=== PATIENT | female | born 1950 | race African-American/Black ===

== ENCOUNTER 2017-03-28 19:14 | Inpatient (IN) | payer BC ==
[~2017-03-28] VITALS: Ht 167.6 cm; Wt 72.3 kg
--- NOTE | ~2017-03-28 | DS ---
Unit #: [id number] #: [id number] Patient: ZELDA PIERRE [id number] [address] [address] [id number] I MR#: [id number] NAME: ZELDA PIERRE ROOM: 558 Age: 66 Sex: F Admission Date: 03/29/2017 : 1950 Discharge Date: 03/31/2017 Attending Physician: Mona Florentino M.D. Primary Care Physician: No Primary Care Physician DISCHARGE SUMMARY PRINCIPAL DIAGNOSES 1. Congestive heart failure secondary to number 2 and number 3. 2. Severe mitral regurgitation. 3. Severe mitral stenosis. 4. Moderate pulmonary hypertension. 5. Hypertension, controlled. 6. Transaminitis secondary to hepatic congestion, now resolved. 7. Acute hypoxic respiratory failure secondary to number 1, now resolved. 8. Hyperlipidemia. 9. Depression. CONSULTANTS Dr. Garcia, cardiology. PROCEDURES Left-side heart catheterization on March 31, 2017. Ejection fraction of 45 to 50%. Severe mitral regurgitation noted. No evidence of aortic stenosis or aortic regurgitation. DIAGNOSTIC STUDIES CARDIOVASCULAR: Two-dimensional echocardiogram on March 29, 2017 with a mildly enlarged right atrium. Elevated right ventricular systolic pressure of 51 mmHg, consistent with moderate pulmonary hypertension. Ejection fraction 55%. Severe mitral regurgitation noted. Moderate mitral stenosis noted. Mitral valve area 2.54 cm squared. Large left pleural effusion noted. IMAGING: Chest x-ray on March 28, 2017 with complete loss of both hemidiaphragms and pulmonary congestion. CT angiogram of the chest on March 28, 2017 with moderate bilateral pleural effusions, right greater than left and a moderate amount of right middle lobe and lingular atelectasis. Interstitial edema also noted. Negative for PE. Chest x-ray on March 30, 2017 with bilateral pleural effusions. CLINICAL HISTORY AND HOSPITAL COURSE Ms. Pierre is a really nice 66-year-old female female who presents to emergency department with increasing shortness of breath. Please refer to H and P for further details. In the emergency department patient was found to have an elevated BNP of 600, and chest x-ray was consistent with pulmonary edema. Patient was subsequently admitted. Unit #: [id number] #: [id number] Patient: ZELDA PIERRE Patient was placed on IV diuretics, and cardiology was consulted. Patient was found to have very loud mitral regurgitation murmur upon examination, and two-D echo was done with findings as noted. Patient's pulmonary edema was secondary to significant mitral regurgitation. Patient underwent heart cath to rule out underlying coronary artery disease, but this was negative. Plan is for symptomatic treatment at this time with IV diuretics, and patient will follow up with Dr. Garcia as an outpatient with plans for outpatient evaluation for mitral valve replacement. Patient's other chronic conditions remained stable with the exception of her blood pressure. Medications have been adjusted, and blood pressure is now well controlled. Thus, she will be discharged home later today. DISCHARGE CONDITION Stable. DISCHARGE STATUS Discharge to home. DISCHARGE MEDICATIONS 1. Zoloft 50 mg daily. 2. Metoprolol tartrate 50 mg p.o. b.i.d. 3. Lasix 40 mg daily. 4. Pravastatin 80 mg at bedtime. 5. Lisinopril 20 mg b.i.d. 6. Aspirin 81 mg daily. 7. Spironolactone 25 mg daily. 8. Klor-Con 20 mEq p.o. daily. DISCHARGE INSTRUCTIONS Patient was instructed to follow a heart healthy diet. She can increase her activity as tolerated. FOLLOW-UP Patient has followup appointment with Dr. Garcia on April 10, 2017 at 3 p.m. She has been instructed to see a dentist in the interim for improved dental hygiene prior to anticipated valve replacement. Dictated by... Mona Florentino M.D. SAM/tomasa TD: 04/03/2017 15:15 JOB #: [id number] Unit #: [id number] #: [id number] Patient: ZELDA PIERRE DISCHARGE SUMMARY Page 1 of 1 X Mona Florentino MD DISCHARGE SUMMARY
--- NOTE | ~2017-03-28 | CT16 ---
[facility] A Service of [facility] & [facility] RADIOLOGY TEXT RESULTS PATIENT: ZELDA NGUYEN LOCATION: [facility] 558-01 : [birth year] UNIT #: [id number] AGE: [address]: Mona Florentino MD SEX: F ORDER DR: [id number] [facility] [address] [place], [place] [address] [id number] I MR#: [id number] Acc #: [id number] NAME: ZELDA NGUYEN : 1950 SEX: F STUDY DATE/TIME: 03/28/2017 21:37 UNIT: CEDOF ROOM: 95598 STUDY DESCRIPTION: CT Angio Chest for PE Attending Physician: Jodi Gramajo M.D. Ordering Physician: Cash Harley D.O. Primary Care Physician: Primary Care Physician No MEDICAL IMAGING REPORT This report is preliminary unless electronic signature is present EXAM CT chest PE protocol. HISTORY Shortness of air. Heart racing since this morning. Elevated D-dimer. COMPARISON Portable chest 03/28/[address] exam was performed with one or more of the following radiation dose reduction techniques: automatic exposure control, adjustment of mA and/or kV according to patient size, and iterative reconstruction. FINDINGS Axial images performed through the chest following IV contrast. 3-D coronal and sagittal reconstructed images reviewed at a workstation. Examination demonstrates moderate bilateral pleural effusions layering to a depth of close to 6 cm on the right and over 4.5 cm on the left. There is compressive atelectasis in both lung bases. There is a moderate amount of lingular and right middle lobe atelectasis. Mild interstitial prominence but no definite interstitial edema. No focal alveolitis. Trachea and bronchi unremarkable. No evidence of pulmonary embolus. Mild cardiomegaly. Aorta unremarkable. The upper abdomen unremarkable. Osseous structures and thoracic inlet appear normal. IMPRESSION 1. Moderate bilateral pleural effusions right greater than left with bibasilar atelectasis as well as a moderate amount of right middle lobe and lingular atelectasis. Mild interstitial prominence but no definitive interstitial edema or focal alveolitis. 2. No evidence of pulmonary embolus. ST[facility] A Service of [facility] & [facility] RADIOLOGY TEXT RESULTS PATIENT: ZELDA NGUYEN LOCATION: [facility] 558-01 : [birth year] UNIT #: [id number] AGE: [address]: Mona Florentino MD SEX: F ORDER DR: Dictated by... Anayeli Segura M.D. THIS IS AN ELECTRONICALLY VERIFIED REPORT Anayeli Segura M.D. at 03/29/2017 2:22 PM Olga TD: 03/29/2017 01:38 JOB #: [id number] MEDICAL IMAGING REPORT Page 1 of 1 COPY
--- NOTE | ~2017-03-28 | CR72 ---
[facility] A Service of [facility] & [facility] RADIOLOGY TEXT RESULTS PATIENT: ZELDA NGUYEN LOCATION: [facility] [address] : 54 UNIT #: [id number] AGE: [address]: Mona Florentino MD SEX: F ORDER DR: [id number] [facility] [address] [place], [place] [address] [id number] MR#: [id number] Acc #: [id number] NAME: ZELDA NGUYEN : 1950 SEX: F STUDY DATE/TIME: 03/28/2017 21:00 UNIT: [facility] ROOM: STUDY DESCRIPTION: CR Chest Single View Portable Attending Physician: Cash Harley D.O. Ordering Physician: Cash Harley D.O. Primary Care Physician: No Primary Care Physician MEDICAL IMAGING REPORT This report is preliminary unless electronic signature is present EXAM Portable chest. HISTORY 66-year-old female with shortness of air, tachycardia. FINDINGS Portable view of the chest demonstrates a complete loss of both hemidiaphragms, blunting of both CP angles and partial obscuration of the heart borders compatible with a small to moderate bilateral pleural effusions and diffuse pulmonary vascular congestion. Heart size is difficult to assess but is suspected to be enlarged. Pulmonary vascularity, however, does not appear to be significantly increased on this portable radiograph. Mid and upper lung zones remain clear. No pneumothorax. Dictated by... Anayeli Segura M.D. THIS IS AN ELECTRONICALLY VERIFIED REPORT Anayeli Segura M.D. at 03/29/2017 2:22 PM Aston TD: 03/29/2017 00:16 JOB #: [id number] MEDICAL IMAGING REPORT Page 1 of 1 COPY
--- NOTE | ~2017-03-28 | EKG ---
PATIENT: ZELDA NGUYEN UNIT #: [id number] Ventricular Rate: 98 BPM Atrial Rate: 98 BPM P-R Interval: 148 ms QRS Duration: 82 ms Q-T Interval: 402 ms QTC Calculation(Bezet): 513 ms P Kilbourne: 53 degrees Calculated R Kilbourne: 54 degrees Calculated T Kilbourne: 49 degrees Diagnosis Line: Normal sinus rhythm Diagnosis Line: Prolonged QT Diagnosis Line: Abnormal ECG Diagnosis Line: When compared with ECG of 28-MAR-2017 19:18, Diagnosis Line: (unconfirmed) Diagnosis Line: T wave amplitude has increased in Anterolateral Diagnosis Line: leads Diagnosis Line: Confirmed by BONNIE PEOPLES MD ([id number]) on 03/29/2017 Diagnosis Line: 7:21:04 PM INTERPRETING MD: RICHELLE ENGLE
--- NOTE | ~2017-03-28 | HP ---
Unit #: [id number] #: [id number] Patient: ZELDA NGUYEN [id number] [address] [address] [id number] Yolie MR#: [id number] NAME: ZELDA NGUYEN ROOM: 55 Age: 66 Sex: F Admission Date: 03/29/2017 : 1950 Attending Physician: Jodi Gramajo M.D. Primary Care Physician: No Primary Care Physician HISTORY AND PHYSICAL CHIEF COMPLAINT New onset congestive heart failure. HISTORY This pleasant 66-year-old female with essential hypertension, hyperlipidemia, is admitted for accelerated hypertension and congestive heart failure. The patient states that recently her diuretic and Norvasc were discontinued. She was well until yesterday morning when she developed palpitations, dyspnea on exertion, orthopnea. Denies chest discomfort with the above. She presented to this emergency department last evening with a heart rate of 115 and a blood pressure of 173/116. EKG shows sinus tachycardia. Chest x-ray and BNP are suggestive of congestive heart failure. On examination the patient has a very loud mitral murmur. No previous history of cardiac murmur per the patient. She was given 40 mEq of potassium, 20 IV of Lasix. She remains hypertensive, and I have asked that aspirin, nitropaste and IV hydralazine be started. PAST MEDICAL HISTORY 1. Hyperlipidemia. 2. Hypertension. 3. Depression. ALLERGIES None. HOME MEDICATIONS Pravachol 80 mg daily; Toprol XL 50 mg daily; Prinivil 10 mg daily; Zoloft 50 mg daily. FAMILY HISTORY Negative for CAD. SOCIAL HISTORY The patient lives with her daughter. She is a lifelong nonsmoker and does not drink alcohol. REVIEW OF SYSTEMS Notable for shortness of breath, orthopnea, palpitations, hyperlipidemia, hypertension, depression. All other systems were reviewed and otherwise negative. PHYSICAL EXAMINATION Unit #: [id number] #: [id number] Patient: ZELDA NGUYEN GENERAL: Pleasant, thin, 66-year-old female mildly anxious but in no acute distress. VITAL SIGNS: Temperature 98.5, pulse 115, respirations 18, blood pressure 173/116, O2 saturation was as low as 90% on 2 L when I saw the patient. HEENT: Eyes - PERRLA, extraocular muscles are intact. Pharynx is benign. NECK: Supple without adenopathy or thyromegaly. CHEST: Chest reveals some crackles at the bases. CARDIAC: Tachy S1 and S2 with a very loud mitral with what I believe is probably systolic murmur but may be diastolic. ABDOMEN: Bowel sounds are present. No hepatosplenomegaly, tenderness or masses. EXTREMITIES: Mild edema. Pedal pulses are present but diminished. NEUROLOGIC: Patient is awake, alert and oriented. Cranial nerves are intact. Equal strength throughout. DIAGNOSTIC STUDIES LABORATORY STUDIES: Hematocrit is 35.7, white blood count 10.6, normal platelet count. Troponin is negative. D-dimer elevated. SMA 12 - glucose is 140, potassium 3.2, CO2 21, AST 69, ALT is 135, alk phos 193, BNP 634. IMAGING STUDIES: Chest x-ray - bilateral small to moderate pleural effusions and findings consistent with congestive heart failure. A CTA was performed of the chest, negative for PE. Moderate bilateral pleural effusions, atelectasis, pulmonary vasculature was prominent. CARDIOLOGY STUDIES: EKG - sinus tachycardia, rate 120, otherwise normal. ASSESSMENT 1. New onset congestive heart failure, which may be on the basis of uncontrolled hypertension. However, the patient has a very loud mitral cardiac murmur on exam. Also need to rule out ischemia. 2. Accelerated hypertension. 3. Loud mitral murmur. 4. Hyperlipidemia. 5. Depression. 6. Hypokalemia. 7. Elevated LFTs. PLANS 1. Lasix, obtain I's and O's and daily weights. 2. Obtain echo, repeat cardiac enzymes, and will ask cardiology to see. 3. Replace potassium and check magnesium. 4. Blood pressure control. At this point will add Lasix, nitropaste, increase HAWK inhibitor and order p.r.n. hydralazine. 5. Aspirin. 6. DVT prophylaxis. 7. Check thyroid function test. Dictated by Juan Gutierrez/tyron TD: 03/29/2017 05:09 Unit #: [id number] #: [id number] Patient: ZELDA NGUYEN JOB #: [id number] CC: [facility] HISTORY AND PHYSICAL Page 1 of 1 X Jodi Gramajo MD HISTORY AND PHYSICAL
--- NOTE | ~2017-03-28 | CO ---
Unit #: [id number] #: [id number] Patient: ZELDA NGUYEN [id number] [address] [place], [place] [address] [id number] I MR#: [id number] NAME: ZELDA NGUYEN ROOM: 558 Age: 66 Sex: F Admission Date: 03/29/2017 : 1950 Attending Physician: Mona Florentino M.D. Primary Care Physician: No Primary Care Physician CONSULTATION REPORT REASON FOR CONSULT New onset congestive heart failure. HISTORY OF PRESENT ILLNESS This is a pleasant 66-year-old female who typically follows with [facility]. She only has a past medical history noted for hypertension and hyperlipidemia. The patient states she has no other previous cardiac history. She does tell me she has been seen recently in [facility], and some of her medications were adjusted. Her water pill was discontinued, and one of her other blood pressure medicines, I believe Amlodipine, was discontinued. This was approximately 2 weeks ago. The patient was in her typical state of health until Monday when she woke from sleep with complaints of sudden onset palpitations, as well as shortness of breath. She states the palpitations came first, and then she developed shortness of breath and just could not get her breath. This was new; has not had any issues with shortness of breath in the past. She denies any complaints of angina. 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 On arrival to the ER, EKG was performed, which showed sinus tachycardia, rate of 123 beats per minute, QTc interval 503 msec. No acute ischemic change was noted. She was also found to be very hypertensive with a blood pressure 173/116, pulse of 115, oxygen saturation 94% on room air. Her chest x-ray was performed, which was consistent with congestive heart failure with jwwvo-ve-rwkxhtor bilateral pleural effusions and diffuse pulmonary congestion. BNP was noted to be 634. It was also remarkable, her potassium was 3.2, and her urine drug tox was positive for THC. Cardiac enzymes have been negative. It is also notable, the patient had elevated liver enzymes, AST of 69, ALT 135, alkaline phosphatase 193. In the emergency room she received 40 mEq of potassium orally, as well as 20 mg of IV Lasix. We were asked to see the patient secondary to new onset congestive heart failure and elevated blood pressures. PAST MEDICAL HISTORY 1. Hypertension. 2. Hyperlipidemia. 3. Depression, anxiety; however, the patient tells me she has never really had that, that she was placed on Zoloft as the primary care doctor told her that her palpitations were due to anxiety. Unit #: [id number] #: [id number] Patient: ZELDA NGUYEN ALLERGIES No known drug allergies. HOME MEDICATIONS 1. Pravastatin 80 mg p.o. q.h.s. 2. Toprol XL 50 mg p.o. daily. 3. Prinivil 10 mg p.o. daily. 4. Zoloft 50 mg p.o. daily. REVIEW OF SYSTEMS Review of systems is negative except for what was stated above in the HPI. FAMILY HISTORY Positive for myocardial infarction in her father; otherwise, no other family members with coronary artery disease. SOCIAL HISTORY Lifelong nonsmoker. Denies illicit drugs or alcohol. She lives with her daughter. The patient works in [employer] at [employer]. PHYSICAL EXAM GENERAL: This is a very pleasant thin female resting in bed. Both daughters are present at bedside. She is in no acute distress. VITAL SIGNS: Temperature 97.9, respiratory rate 18, pulse 115. Blood pressure on arrival to the emergency room was 170/118. Repeat blood pressure 167/93. HEENT: Head is atraumatic, normocephalic. Pupils are equal and round. NECK: Trachea is midline. Neck is supple. Positive JVD is noted. Normal carotid upstrokes. No carotid bruits. CARDIOVASCULAR: S1, S2. Regular rate and rhythm. There is a loud grade 3/6 systolic murmur, best heard at the apex. LUNGS: Clear to auscultation anterior. Decreased breath sounds in both lower lobes. ABDOMEN: Soft, nontender, nondistended. Bowel sounds are present. No hepatosplenomegaly is noted. EXTREMITIES: Pulses are palpable. No clubbing, cyanosis or edema is noted. NEUROLOGIC: The patient is awake, alert and oriented. She moves all extremities equally. She follows commands with ease. DIAGNOSTIC STUDIES IMAGING: Chest x-ray shows qdyvl-rt-zsipmttc bilateral pleural effusions and diffuse pulmonary vascular congestion. Heart size is difficult to assess but is suspected to be large. CT angiogram of the chest is consistent with moderate bilateral pleural effusions, right greater than left. No evidence of PE. LABORATORY: Glucose 140, BUN 11, creatinine 0.8, sodium 139, potassium 3.2, chloride 108, CO2 21, AST of 69, ALT 135, ALP 193. BNP 634. TSH 1.97. D-dimer was elevated at 732. INR was within normal limits of 1.1. Wqull-fm-vbfb troponin was less than 0.05. Hemoglobin 11.5, hematocrit 35.7, WBC 10.6, platelet count 204. She currently has a hepatitis panel, which is pending. Urine drug tox is positive for marijuana. CARDIOVASCULAR: EKG shows sinus tachycardia, rate of 123 beats per minute, QTc interval of 503 msec. No acute ischemic change. Unit #: [id number] #: [id number] Patient: ZELDA NGUYEN IMPRESSION 1. New onset congestive heart failure. 2. Loud systolic murmur, grade 3/6, best heard at the apex with no prior history of valvular heart disease. 3. Complaint of palpitations. No A fib noted on telemetry or EKG. The patient has sinus tachycardia. 4. Uncontrolled hypertension. 5. Hyperlipidemia history. 6. Prolonged QTc interval, 503 msec. 7. Suspected severe mitral regurgitation, questionable age. PLAN This is a pleasant 66-year-old female with no prior history of congestive heart failure or cardiac history other than hypertension. She is found to be in acute pulmonary edema and has poorly controlled hypertension with blood pressure maximum of 173/116. The patient also has a loud systolic murmur best heard at the apex, grade 3/6. Will plan to start her on Aldactone 25 mg p.o. daily, check fasting lipid profile, continue with fluid restriction, strict I and O's and IV diuresis. She will also be started on Metoprolol with parameters b.i.d. to slow heart rate, as well as a nitrate paste twice daily. IV fluids have been discontinued, and the patient is also started on Lovenox for DVT prophylaxis. Will get two-D echocardiogram secondary to new murmur. The patient has been instructed on the importance of fluid restriction and a low sodium diet. Further recommendations pending based on the results of echocardiogram. Dictated by... Carmela Stubbs A.P.R.N. for Juan Corbett/tomasa TD: 03/31/2017 09:38 JOB #: [id number] CONSULTATION REPORT Page 1 of 1 X Carmela Stubbs APRN X CONSULTATION REPORT
--- NOTE | ~2017-03-28 | A ---
[facility] Nutrition Therapy DATE: 03/30/17 Patient: ZELDA NGUYEN Physician: PRASHANTH Address: [address] [place] [address] Room/Bed: [address] [place] [address], Zip: [place] [address] Admit Date: 03/29/17 Date of : [birth year] Height: 5 6 Weight: 159 72.3 NUTRITIONAL ASSESSMENT: REASON: Consult re: "nutritional support" Admitting dx: 66 y/o female admitted with new onset CHF PMH: HTN, HLD, DVT, depression Anthropometrics: Ht: 66", Wt: 159 lbs, BMI: 25 (overweight) Labs: AST 47, ALT 112, BNP 634, Albumin 3.4, lipid panel WNL Meds: Furosemide, laxative of choice prn, heart/BP meds noted I/O & Bowel function: BM 03/28 Skin Integrity: No issues, no edema Assessment: Chart reviewed, events noted. See admitting dx and PMH as stated above. Patient with new onset CHF. Of note, her PCP had discontinued her diuretics. CT showed JAVY pleural effusions, no pulmonary embolism. She lives with her daughter and is a lifelong non-smoker and non-drinker. She is currently on a healthy heart/CARLTON diet with [address] consulted 2' "nutritional support" and low protein. MD noted mild protein calorie malnutrition in the patient's chart, which I am assuming is due to her low ambumin level. The patient scored 0 points on the malnutrition risk screening and denies any recent weight loss. She has been eating well at home, 3 meals per day. Although she has some infected back teeth, it does not interfere with her chewing or swallowing. Based on this, I do not believe she has any degree of malnutrition. states the patient may need a valve replacement and is going to have a heart cath done in the AM. RD provided both verbal and written low sodium and fluid restriction diet education and stressed the importance of daily weights. The patient admitted to adding a lot of table salt to her food. The patient and her daughter acknowledged understanding and had no questions. RD contact info left. See recs below. Dx: Excessive sodium intake r/t dietary habits AEB CHF, need for low sodium and fluid restriction diet education. Intervention: D/C CARLTON restriction, diet education Monitoring, Evaluation and Goals: 1. Adherence to low sodium diet and fluid restriction. 2. Gradual weight loss towards IBW. [facility] Nutrition Therapy DATE: 03/30/17 Patient: ZELDA NGUYEN Physician: PRASHANTH Address: [address] [place] [address] Room/Bed: [address] [place] [address], Zip: [place] [address] Admit Date: 03/29/17 Date of : [birth year] Height: 5 6 Weight: 159 72.3 Monitor: per protocol, criteria to determine if above goals met Recommendations: 1. Please D/C no added salt (CARLTON) restriction, as the patient is already restricted to 2g sodium under the healthy heart diet. 2,000 ml/day fluid restriction per MD. 2. RD provided low sodium and fluid restriction diet education as described above with handouts. Please encourage compliance and daily weights. If the patient gains 3 or more lbs in 1-2 days or 5 or more lbs within 1 week she should call her doctor. 3. Encourage gradual weight loss of ~10 lbs towards IBW. 4. Based on the above assessment and the patient's diet/weight history, no malnutrition has been identified. *Note that serum albumin is not a reliable indicator of nutrition status due to low sensitivity/specificity. It is affected by various physiological conditions such as disease states, inflammation, fluid status, etc. and should not be used as a tool to diagnose malnutrition. RD will follow hospital course Mild nutrition risk Respectfully, Kristen Allen, JAMAL, MIKE [employer] [facility] cc: client file
--- NOTE | ~2017-03-28 | EKG ---
PATIENT: ZELDA NGUYEN UNIT #: [id number] Ventricular Rate: 76 BPM Atrial Rate: 76 BPM P-R Interval: 136 ms QRS Duration: 78 ms Q-T Interval: 478 ms QTC Calculation(Bezet): 537 ms P [place]: -3 degrees Calculated R [place]: 37 degrees Calculated T [place]: 42 degrees Diagnosis Line: Normal sinus rhythm Diagnosis Line: T wave abnormality, consider anterior ischemia Diagnosis Line: Prolonged QT Diagnosis Line: Abnormal ECG Diagnosis Line: When compared with ECG of 29-MAR-2017 05:49, Diagnosis Line: T wave abnormalities worse Diagnosis Line: Confirmed by MARYLIN CHARLES MD ([id number]) on Diagnosis Line: 03/31/2017 4:34:03 PM INTERPRETING MD: JONE
--- NOTE | ~2017-03-28 | EKG ---
PATIENT: ZELDA NGUYEN UNIT #: [id number] Ventricular Rate: 69 BPM Atrial Rate: 69 BPM P-R Interval: 148 ms QRS Duration: 80 ms Q-T Interval: 486 ms QTC Calculation(Bezet): 520 ms P [place]: 48 degrees Calculated R [place]: 47 degrees Calculated T [place]: 50 degrees Diagnosis Line: Normal sinus rhythm Diagnosis Line: Possible Left atrial enlargement Diagnosis Line: Nonspecific T wave abnormality Diagnosis Line: Prolonged QT Diagnosis Line: Abnormal ECG Diagnosis Line: When compared with ECG of 30-MAR-2017 01:49, Diagnosis Line: (unconfirmed) Diagnosis Line: T waves upright in anterior leads Diagnosis Line: Confirmed by MARYLIN CHARLES MD ([id number]) on Diagnosis Line: 03/31/2017 4:46:57 PM INTERPRETING MD: JONE
--- NOTE | ~2017-03-28 | EKG ---
PATIENT: ZELDA NGUYEN UNIT #: [id number] Ventricular Rate: 123 BPM Atrial Rate: 123 BPM P-R Interval: 128 ms QRS Duration: 80 ms Q-T Interval: 352 ms QTC Calculation(Bezet): 503 ms P [place]: 71 degrees Calculated R [place]: 68 degrees Calculated T [place]: 62 degrees Diagnosis Line: Sinus tachycardia Diagnosis Line: Otherwise normal ECG Diagnosis Line: No previous ECGs available Diagnosis Line: Confirmed by BONNIE PEOPLES MD ([id number]) on 03/29/2017 Diagnosis Line: 7:17:56 PM INTERPRETING MD: RICHELLE ENGLE
--- NOTE | ~2017-03-28 | CR63 ---
[facility] A Service of [facility] & [facility] RADIOLOGY TEXT RESULTS PATIENT: ZELDA NGUYEN LOCATION: [place] [address]- : 54 UNIT #: [id number] AGE: [address]: Mona Florentino MD SEX: F ORDER DR: [id number] [facility] [address] [place], [place] [address] [id number] MR#: [id number] #: [id number] NAME: ZELDA NGUYEN : 1950 SEX: F STUDY DATE/TIME: 03/30/2017 9:54 UNIT: [facility] ROOM: [facility] STUDY DESCRIPTION: CR Chest 2 View Attending Physician: Mona Florentino M.D. Ordering Physician: Kai Garcia M.D. Primary Care Physician: Primary Care Physician No MEDICAL IMAGING REPORT This report is preliminary unless electronic signature is present EXAM Chest PA and lateral 03/30/2017 HISTORY Shortness of breath, rapid heartbeat and cough and pneumonia since 03/28/2017. Benign essential hypertension and congestive heart failure. FINDINGS The heart is normal in size. There are bilateral pleural effusions with bibasilar infiltrates or atelectasis. The upper lungs are clear. No pneumothorax. IMPRESSION Bilateral pleural effusions with bibasilar infiltrates and/or atelectasis. Dictated by... Kyree Linares M.D. THIS IS AN ELECTRONICALLY VERIFIED REPORT Kyree Linares M.D. at 03/31/2017 7:55 AM YUNG/bridger TD: 03/30/2017 11:07 JOB #: [id number] MEDICAL IMAGING REPORT Page 1 of 1 COPY
[2017-03-28 20:18] LABS: BASOPHIL# 0.1 X10e3 (0-0.3); BASOPHIL% 0.5 % (0-2.5); EOSINOPHIL% 0.4 % (0.0-7.0); HEMATOCRIT 35.7 % (35.0-45.0); HEMOGLOBIN 11.5 gm/dL (12.0-16.0); LYMPHOCYTE# 1.7 X10e3 (1.0-3.5); MEAN CELL VOLUME 90.5 FL (83-96); MEAN CORPUSCULAR HEMOGLOBIN 29.3 PG (28-34); MEAN CORPUSCULAR HGB CONC 32.3 g/dL (30-36); MEAN PLATELET VOLUME 9.6 FL (6.5-11.5); MONOCYTE# 0.7 X10e3 (0-1.0); MONOCYTE% 6.4 % (3.0-12.0); NEUTROPHIL# 8.1 X10e3 (1.5-7.1); NEUTROPHIL% 76.7 % (40-75); PLATELET COUNT 234 X10e3 (140-420); RED BLOOD COUNT 3.95 X10e (3.90-5.30); RED CELL DISTRIBUTION WIDTH 14.6 % (11.0-15.5); WHITE BLOOD COUNT 10.6 X10e3 (4.0-10.5)
[2017-03-28 20:19] LABS: DIFF IND NO
[2017-03-28 20:36] LABS: BUN/CREATININE RATIO 13.75; CALCIUM SERUM 8.9 mg/dL (8.4-10.2); CREATININE SERUM 0.8 mg/dL (0.6-1.4); POTASSIUM 3.2 mmol/L (3.5-5.1)
[2017-03-28 20:46] LABS: POC - CKMB <1.0 ng/mL (0.0-7.9); POC - TROPONIN <0.05 ng/mL (<=0.05)
[2017-03-28 20:51] LABS: ALBUMIN SERUM 3.7 g/dL (3.5-5.0); BILIRUBIN, DIRECT 0.2 mg/dL (0.0-0.2); BILIRUBIN,INDIRECT 0.8 mg/dL (0.0-0.9); PROTEIN TOTAL SERUM 6.7 g/dL (6.0-8.3)
[2017-03-28] MEDS ORDERED: PRAVASTATIN SOD80 MG PO (23:03)
[2017-03-28] MEDS ORDERED: TOPROL XL50 MG PO (23:04)
[2017-03-28] MEDS ORDERED: PRINIVIL10 MG PO (23:04)
[2017-03-28] MEDS ORDERED: ZOLOFT50 MG PO (23:04)
[2017-03-28 23:10] LABS: POC - CKMB <1.0 ng/mL (0.0-7.9); POC - TROPONIN <0.05 ng/mL (<=0.05)
[2017-03-29 01:43] LABS: AMPHETAMINE NEG (NEG); BARBITURATES NEG (NEG); BENZODIAZEPINES NEG (NEG); COCAINE NEG (NEG); MARIJUANA POS (NEG); OPIATES NEG (NEG); TRICYCLIC ANTIDEPRESSANTS NEG (NEG); U METHADONE NEG (NEG)
[2017-03-29 07:15] LABS: HEMATOCRIT 33.5 % (35.0-45.0); HEMOGLOBIN 10.8 gm/dL (12.0-16.0); MEAN CELL VOLUME 90.4 FL (83-96); MEAN CORPUSCULAR HEMOGLOBIN 29.2 PG (28-34); MEAN CORPUSCULAR HGB CONC 32.3 g/dL (30-36); MEAN PLATELET VOLUME 10.2 FL (6.5-11.5); RED BLOOD COUNT 3.7 X10e (3.90-5.30); RED CELL DISTRIBUTION WIDTH 15.3 % (11.0-15.5); WHITE BLOOD COUNT 8.9 X10e3 (4.0-10.5)
[2017-03-29 07:33] LABS: INR 1.1; PARTIAL THROMBOPLASTIN TIME 25.4 SECONDS (23.5-31.3); PROTHROMBIN TIME (PATIENT) 12.2 SECONDS (10.0-11.7)
[2017-03-29 07:45] LABS: ALBUMIN SERUM 3.4 g/dL (3.5-5.0); CALCIUM SERUM 8.8 mg/dL (8.4-10.2); CREATININE SERUM 0.6 mg/dL (0.6-1.4); GLOM FILT RATE Estimated 111.6 mL/min (>60); MAGNESIUM 1.6 mg/dL (1.6-3.0); POTASSIUM 3.7 mmol/L (3.5-5.1); PROTEIN TOTAL SERUM 5.9 g/dL (6.0-8.3)
[2017-03-29 07:54] LABS: THYROID STIMULATING HORMONE 1.97 uIU/ml (0.34-5.60)
[2017-03-29 08:01] LABS: FREE THYROXIN (T4) 1.17 ng/dL (0.58-1.64)
[2017-03-29 11:33] LABS: IRON SERUM 56 ug/dL (28-170); TOTAL IRON BINDING CAPACITY 240 ug/dL (269-535); TRANSFERRIN 172 mg/dL (192-382); TRANSFERRIN SATURATION 23 % (20-50)
[2017-03-30 05:26] LABS: HEMATOCRIT 33.4 % (35.0-45.0); MEAN CELL VOLUME 89.7 FL (83-96); MEAN CORPUSCULAR HEMOGLOBIN 29.7 PG (28-34); MEAN CORPUSCULAR HGB CONC 33.1 g/dL (30-36); MEAN PLATELET VOLUME 9.6 FL (6.5-11.5); RED BLOOD COUNT 3.72 X10e (3.90-5.30); RED CELL DISTRIBUTION WIDTH 15.1 % (11.0-15.5); WHITE BLOOD COUNT 7.8 X10e3 (4.0-10.5)
[2017-03-30 05:54] LABS: BUN/CREATININE RATIO 14.28; CREATININE SERUM 0.7 mg/dL (0.6-1.4); GLOM FILT RATE Estimated 106.1 mL/min (>60); MAGNESIUM 2.3 mg/dL (1.6-3.0); POTASSIUM 3.7 mmol/L (3.5-5.1)
[2017-03-30 18:34] LABS: URINE APPEARANCE CLOUDY; URINE BLOOD NEG (NEG); URINE COLOR DK YELLOW; URINE GLUCOSE NEG (NEG); URINE KETONE TRACE (NEG); URINE LEUKOCYTE ESTERASE TRACE (NEG); URINE NITRATE NEG (NEG); URINE PH 5.5 (5-8); URINE PROTEIN NEG (NEG); URINE SPECIFIC GRAVITY 1.022 (1.003-1.035)
[2017-03-30 18:35] LABS: URBCS1 AUWI 0-2 /[HPF] (0-2); URINE BACTERIA AUWI 1+ (NEGATIVE); URINE SQUAMOUS EPITHELIAL CELL FEW /[HPF]
[2017-03-30 18:40] LABS: URINE BILIRUBIN POS (NEG)
[2017-03-31 06:18] LABS: HEMOGLOBIN 11.9 gm/dL (12.0-16.0); MEAN CELL VOLUME 90.3 FL (83-96); MEAN CORPUSCULAR HGB CONC 32.1 g/dL (30-36); MEAN PLATELET VOLUME 9.8 FL (6.5-11.5); RED BLOOD COUNT 4.09 X10e (3.90-5.30); RED CELL DISTRIBUTION WIDTH 14.7 % (11.0-15.5); WHITE BLOOD COUNT 6.7 X10e3 (4.0-10.5)
[2017-03-31 06:39] LABS: INR 1.1; PARTIAL THROMBOPLASTIN TIME 26.3 SECONDS (23.5-31.3); PROTHROMBIN TIME (PATIENT) 11.7 SECONDS (10.0-11.7)
[2017-03-31 07:06] LABS: ALBUMIN SERUM 3.7 g/dL (3.5-5.0); BILIRUBIN,TOTAL 1.4 mg/dL (0.2-2.0); BUN/CREATININE RATIO 18.33; CALCIUM SERUM 9.1 mg/dL (8.4-10.2); CREATININE SERUM 0.6 mg/dL (0.6-1.4); GLOM FILT RATE Estimated 111.6 mL/min (>60); POTASSIUM 3.8 mmol/L (3.5-5.1); PROTEIN TOTAL SERUM 6.6 g/dL (6.0-8.3)
[2017-03-31 15:37] LABS: HA AB IGM (HEPPAN) Nonreactive (()); HB CORE AB IGM (HEPPAN) Nonreactive (Nonreactive); HB S AG (HEPPAN) Nonreactive (Nonreactive); HEP C AB (HEPPAN) Nonreactive (Nonreactive); HEP C AB SIGNAL TO CUTOFF 0.01 ratio (<1.00)
[2017-03-31] MEDS ORDERED: PRINIVIL20 M1 PO (17:09)
[2017-03-31] MEDS ORDERED: LASIX PO (17:10)
[2017-03-31] MEDS ORDERED: ALDACTONE25 MG PO (17:11)
[2017-03-31] MEDS ORDERED: KLOR-CON PO (17:12)
[2017-03-31] MEDS ORDERED: CHEWABLE ASPIRI81 MG PO (17:33)
== END 2017-03-31 18:26 | disposition home or self-care (01) | DRG 286 ==
LOC: CED 19:14 → CEDOF 03-29 00:30 → C5B 03-29 00:30 → CED 03-29 00:43 → CEDOF 03-29 00:43 → C5B 03-29 02:02 → CEDOF 03-29 02:02 → C5B 03-29 07:34
PROVIDERS: Emergency Medicine; Internal Medicine; Internal Medicine Cardiovascular Disease
PROC: 4A023N8 Measurement of Cardiac Sampling and Pressure, Bilateral, Percutaneous Approach (ICD-10-PCS; principal; 2017-03-31)
PROC: B2111ZZ Fluoroscopy of Multiple Coronary Arteries using Low Osmolar Contrast (ICD-10-PCS; 2017-03-31)
PROC: B2151ZZ Fluoroscopy of Left Heart using Low Osmolar Contrast (ICD-10-PCS; 2017-03-31)
DX: I11.0 Hypertensive heart disease with heart failure (principal); J96.01 Acute respiratory failure with hypoxia; I16.9 Hypertensive crisis, unspecified; I50.9 Heart failure, unspecified; I34.0 Nonrheumatic mitral (valve) insufficiency; I36.1 Nonrheumatic tricuspid (valve) insufficiency; F41.8 Other specified anxiety disorders; E78.5 Hyperlipidemia, unspecified; F12.10 Cannabis abuse, uncomplicated; E87.6 Hypokalemia
CPT/HCPCS: 36415; 71010; 71020; 71275; 80048; 80053; 80061; 80074; 80076; 80307; 81003; 82553; 82607; 82810; 83540; 83550; 83735; 83880; 84439; 84443; 84484; 85025; 85027; 85379; 85610; 85730; 93005; 93306; 94760; 97161; 99152; 99153; 99285; C1769; C1887; C1894; G8978-GP; G8979-GP; G8980-GP; J0360; J1644; J1650; J1940; J2250; J3010; J3475; Q9967